=== PATIENT | female | born 1945 | race Caucasian/White ===

== ENCOUNTER → 2018-05-15 16:59 | Outpatient (CLI) | payer OTHER, SELFPAY ==
--- NOTE | 2018-05-15 | DI.RAD.S_ITS ---
PROCEDURE: XR WRIST LT 2V INDICATIONS: LEFT WRIST PAIN TECHNIQUE: 2 views of the wrist were acquired. COMPARISON: [facility], CR, XR HAND LT 2V, 05/15/2018, 17:09. FINDINGS: Bones: No definite, acute fractures are seen. There is a smooth, remote appearing bone cleft involving the radial styloid. Degenerative changes are seen, which are most prominent involving the radial aspect of the carpus. Hooked osteophytes are seen involving the 3rd and 4th metacarpal heads. Soft tissues: No suspicious soft tissue calcifications. IMPRESSION: Apparent remote fracture involving the radial styloid. If there is point tenderness (or other clinical suspicion for a fracture not seen on these images) then a dedicated CT could be considered for further evaluation, as clinically appropriate. Degenerative changes are seen, which are most prominent involving the medial aspect of the carpus. Hooked osteophytes are seen, which can be observed in patients with CPPD deposition disease and hemachromatosis. Dictated by: Eleno Keenan M.D. on 05/15/2018 at 17:00 Approved by: Eleno Keenan M.D. on 05/15/2018 at 17:02
--- NOTE | 2018-05-15 | DI.RAD.S_ITS ---
PROCEDURE: XR HAND LT 2V INDICATIONS: LEFT HAND PAIN TECHNIQUE: 2 views of the hand(s) acquired. COMPARISON: [facility], CR, XR WRIST LT 2V, 05/15/2018, 17:11. FINDINGS: Bones: No fractures or dislocations. Carpal bones are normally aligned. No suspicious bony lesions. Degenerative changes are seen, with which are most prominent involving the radial aspect of the carpus. Joint space narrowing can be seen involving the distal interphalangeal joints and the proximal interphalangeal joints. A mild gullwing deformity can be seen involving several interphalangeal joints. Hooked osteophytes involving the 3rd and 4th metacarpal heads. Bandaging material is seen, which somewhat limits evaluation. Soft tissues: No suspicious soft tissue calcifications. 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 Hooked osteophytes can be seen, which is is observed in patients with hemachromatosis and CPPD deposition disease. Dictated by: Eleno Keenan M.D. on 05/15/2018 at 16:58 Approved by: Eleno Keenan M.D. on 05/15/2018 at 17:00
== END ==
PROVIDERS: PCP Internal Medicine; Visit Provider Internal Medicine
DX: M79.642 Pain in left hand (principal); M19.042 Primary osteoarthritis, left hand; M25.532 Pain in left wrist; M19.032 Primary osteoarthritis, left wrist
CPT/HCPCS: 73100; 73120

== ENCOUNTER 2023-02-19 08:08 | Emergency (ER) | payer OTHER, SELFPAY ==
[2023-02-19] VITALS (9 sets, daily range): BP systolic 138–199; BP diastolic 63–86; PULSE 60–67; RESP 16–22; TEMP 36.3; O2SAT 99–100; BMI 23.0
--- NOTE | 2023-02-19 08:28 | ED_ITS ---
HPI - Abdominal Pain General Chief Complaint: Abdominal Pain Stated Complaint: Lower abd pain Time Seen by Provider: 02/19/23 08:14 Source: patient and EMS Mode of arrival: EMS History of Present Illness HPI narrative: Patient is a 77-year-old who denies any medical problems and does not take any medication presents today with lower abdominal pain diarrhea ongoing since November. She reports that it all started when she ate shrimp in obvious. She says since then she is had lower abdominal pain and diarrhea multiple times. She reports seeing transparent long stringy things in the toilet when she poops. She is been tested for parasites couple of times all have been negative but she is quite worried that she is a parasite. She is been taking [id number] natural parasite drops. She is here because she can not take it anymore she is quite anxious and worried she is lower abdominal pain. No nausea or vomiting no chest pain or shortness of breath. She does not want anything for pain. She does have a history of anaphylaxis to lisinopril aspirin Benadryl NSAIDs. Related Data Previous Rx's Medication Instructions Recorded ciprofloxacin HCl 500 mg tablet 500 mg PO BID #14 tabs 02/19/23 (Cipro) metronidazole 500 mg tablet 500 mg PO Q8H 7 days #21 tabs 02/19/23 Allergies Allergy/AdvReac Type Severity Reaction Status Date / Time aspirin Allergy Verified 02/19/23 08:17 diphenhydramine Allergy Verified 02/19/23 08:17 [From Benadryl] NSAIDS (Non-Steroidal Allergy Verified 02/19/23 08:17 Anti-Inflamma Penicillins Allergy Verified 02/19/23 08:17 prednisone Allergy Verified 02/19/23 08:17 Naimioi-UKO-OcF Reductase Allergy Verified 02/19/23 08:17 Inhibitor From PROZAC Allergy Severe ANAPHYLACTIC Uncoded 07/18/17 11:47 - W/ 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 LISINOPRIL Allergy Intermediate SWELLING Uncoded 07/18/17 11:47 AND HIVES NOVOCAIN Allergy Intermediate SEVERE Uncoded 07/18/17 11:47 H/A, VOMITING DARVON Allergy Unknown NAUSEA Uncoded 07/18/17 11:47 Patient History Social History Smoking Status: Never smoker Smoking Status: Never smoker alcohol intake frequency: other Substance Use Type: does not use Exam Initial Vital Signs Initial Vital Signs: Vital Signs Blood Pressure 199/86 H 02/19/23 08:12 GENERAL: Alert alert 77-year-old worried female HEENT: Head atraumatic,EOMI, pupils reactive, face symmetric, moist mucous membranes CARDIOVASCULAR: Regular rate and rhythm without murmurs, rubs or gallops. RESPIRATORY: Breath sounds equal bilaterally, no wheezes rales or rhonchi. ABDOMEN: Soft, mild lower abdominal tenderness EXTREMITIES: Normal range of motion, no clubbing or edema. Neurovascularly intact NEUROLOGICAL: Alert and oriented x4.Normal gait and speech. SKIN: Warm, dry, no laceration, no petechiae, no rashes or lesions. Course Orders Ordered: ED Orders 02/19/23 08:11 Complete Blood Count AUTO DIFF Stat Comprehensive Metabolic Panel Stat Lipase Stat 02/19/23 08:28 CT abdomen pelvis w con Stat Discontinued Medications Sodium Chloride (Normal Saline 0.9%) 1,000 mls @ 1,000 mls/hr IV BOLUS ONE Stop: 02/19/23 09:27 Last Infusion: 02/19/23 09:46 Dose: Infused Documented By: Admin: 02/19/23 08:49 Dose: 1,000 mls/hr Documented By: SIA Vital Signs Vital signs: Vital Signs - 8 hr 02/19/23 08:12 02/19/23 08:13 02/19/23 08:18 Temperature 97.4 F L Pulse Rate 67 60 Respiratory Rate 18 Blood Pressure 199/86 H 199/86 H Pulse Oximetry 100 100 Oxygen Delivery Method Room Air 02/19/23 08:30 02/19/23 08:31 02/19/23 08:31 Temperature Pulse Rate 63 63 Respiratory Rate Blood Pressure 164/67 H Pulse Oximetry 99 100 Oxygen Delivery Method 02/19/23 08:57 02/19/23 08:57 02/19/23 09:00 Temperature Pulse Rate 66 Respiratory Rate 16 Blood Pressure 149/63 H 138/63 Pulse Oximetry 100 Oxygen Delivery Method 02/19/23 09:00 02/19/23 09:30 02/19/23 09:31 Temperature Pulse Rate 64 63 64 Respiratory Rate 17 22 Blood Pressure Pulse Oximetry 100 100 100 Oxygen Delivery Method Room Air Room Air 02/19/23 09:31 Temperature Pulse Rate Respiratory Rate Blood Pressure 183/74 H Pulse Oximetry Oxygen Delivery Method MDM - Abdominal Pain Lab Data 02/19/23 08:11 02/19/23 08:11 Labs: Lab Results 02/19/23 Range/Units 08:11 WBC 4.2 L (4.5-11.0) X10^3/uL RBC 4.20 (4.0-5.2) X10^6/uL Hgb 13.5 (12.0-16.0) g/dL Hct 39.3 (36-46) % MCV 93.7 (80-100) fL MCH 32.3 (26-34) PG MCHC 34.4 (30-36) % RDW 13.5 (11.6-14.8) % Plt Count 282 (150-400) X10^3/uL Neut % (Auto) 58.0 (50-75) % Lymph % (Auto) 27.1 (25-40) % Bradley % (Auto) 10.4 (3-14) % Eos % (Auto) 3.3 (2-4) % Baso % (Auto) 1.2 (0-2) % Neut # (Auto) 2400 (0256-5247) /uL Lymph # (Auto) 1100 (7201-3881) /uL Bradley # (Auto) 400 (0-900) /uL Eos # (Auto) 100 (0-450) /uL Baso # (Auto) 0 (0-100) /uL Sodium 136 L (137-145) mmol/L Potassium 4.1 (3.4-5.1) mmol/L Chloride 104 (98-107) mmol/L Carbon Dioxide 24 (22-32) mmol/L BUN 14 (7-17) mg/dL Creatinine 0.74 (0.52-1.04) mg/dL Estimated GFR > 60 (>60) mL/min BUN/Creatinine Ratio 18.9 (6-22) Glucose 95 (80-110) mg/dL Calcium 9.7 (8.4-10.2) mg/dL Total Bilirubin 1.2 (0.2-1.3) mg/dL AST 27 (14-36) IU/L ALT 15 (<35) IU/L Alkaline Phosphatase 75 (38-126) U/L Total Protein 8.0 (6.3-8.2) g/dL Albumin 4.2 (3.5-5.0) g/dL Globulin 3.8 (1.7-4.1) g/dL Albumin/Globulin Ratio 1.1 (1.0-2.8) Lipase 69 (23-300) U/L Point of care testing: Urine Dip Bedside Urine Glucose Negative Bedside Urine Bilirubin - Negative Bedside Urine Ketone +/- 5 Urine Specific [place] 1.000 Bedside Urine Occult Blood - Negative Bedside Urine pH 6.0 Bedside Urine Protein - Negative Bedside Urine Urobilinogen - Negative Bedside Urine Nitrite - Negative Bedside Urine Leukocytes - Negative Esterase Imaging Data CT scan - abdomen/pelvis: Radiologist's Impression: PROCEDURE: CT ABDOMEN PELVIS W CON INDICATIONS: lower ab pain TECHNIQUE: After the administration of IV contrast, axial sections were acquired from the lung bases to the pubic symphysis. Coronal and sagittal reformats were performed. For radiation dose reduction, the following was used: automated exposure control, adjustment of mA and/or kV according to patient size. COMPARISON: None. FINDINGS: Image quality: Excellent. Lung bases: Reticular thickening which could be due to interstitial lung disease. No pleural effusion. Heart: Coronary artery calcifications. Small hiatal hernia. ABDOMEN: Liver: Several small hepatic cysts. Gallbladder: Within normal limits. Biliary ducts: Not distended. Pancreas: No peripancreatic fluid collection. Spleen: No splenomegaly. Adrenal Glands: No nodule. Kidneys and Ureters: No hydronephrosis. No solid renal mass. Stomach and Bowel: Stomach is within normal limits. No small bowel obstruction. Diverticulosis. No diverticulitis identified. Trace free fluid or edema in the left pericolic gutter, (2/32). Normal appendix. Peritoneum: No ascites. No pneumoperitoneum. Ventral Wall: No hernia. Abdominal Nodes: No retroperitoneal or mesenteric adenopathy by size criteria. Vessels: Aorta and inferior vena cava are normal in size. Circumferential calcified atherosclerotic plaque. PELVIS: Pelvic Organs: Uterus is absent. Trace presacral edema. Bladder: No stone. Pelvic Nodes: No enlarged lymph nodes. Miscellaneous: No inguinal hernias are seen. Bones: No focal lesion. No compression fracture. Multilevel DDD. IMPRESSION: Trace fluid or edema in the left pericolic gutter. This could be seen in the setting of colitis. No diverticulitis is appreciated. Trace presacral edema. No mass or adenopathy. Dictated by: Eric Stapleton M.D. on 02/19/2023 at 9:04 MDM Narrative Medical decision making narrative: Patient 77-year-old female who presents today with ongoing abdominal pain and diarrhea for months. She is quite concerned that she has parasites despite multiple outpatient negative parasite blood work today has been reviewed. WBC 4.2 no anemia no significant electrolyte abnormality or ARIADNE. CT shows trace fluid in the left pericolic gutter suggesting colitis but no diverticulitis. At this time patient has had ongoing symptoms for a number of months there is no perforation abscess or significant complication. I think reasonable to start her on Cipro and Flagyl to see if her symptoms improve. Discharge Plan Departure Patient Disposition: Home Clinical Impression: Colitis Instructions: DI for Colitis Activity Restrictions/Additional Instructions: *You have been diagnosed with colitis *What to do: At this time increase diet as tolerated *Continue to take medications as directed--> [facility] Cipro 500 mg twice a day for 7 days Flagyl 500 mg 3 times a day for 7 days *Follow up with your primary care provider in 2-3 days or call [phone] *Return to ER if you should have increasing pain rash difficulty breathing or any new, worsening or concerning symptoms Prescriptions: New metronidazole 500 mg tablet 500 mg PO Q8H 7 Days Qty: 21 0RF ciprofloxacin HCl [Cipro] 500 mg tablet 500 mg PO BID Qty: 14 0RF Referrals: Lea Fierro PA-C [Physician] - Stand Alone Forms: Patient Portal/API
[2023-02-19 08:44] LABS: Add Manual Diff / Slide Review NO; Basophils Absolute Auto 0 /uL (0-100); Basophils Percent Auto 1.2 % (0-2); Eosinophils Absolute Auto 100 /uL (0-450); Eosinophils Percent Auto 3.3 % (2-4); Hematocrit 39.3 % (36-46); Hemoglobin 13.5 g/dL (12.0-16.0); Lymphocytes Absolute Auto 1100 /uL (1100-4500); Lymphocytes Percent Auto 27.1 % (25-40); Mean Corpuscular HGB Conc 34.4 % (30-36); Mean Corpuscular Hemoglobin 32.3 PG (26-34); Mean Corpuscular Volume 93.7 fL (80-100); Monocytes Absolute Auto 400 /uL (0-900); Monocytes Percent Auto 10.4 % (3-14); Neutrophils Absolute Auto 2400 /uL (1500-7000); Platelet Count 282 X10^3/uL (150-400); Red Cell Distribution Width 13.5 % (11.6-14.8); White Blood Cell Count 4.2 X10^3/uL (4.5-11.0)
[2023-02-19 08:49] LABS: Alanine Aminotransferase 15 IU/L (<35); Albumin 4.2 g/dL (3.5-5.0); Albumin Globulin Ratio 1.1 (1.0-2.8); Alkaline Phosphatase 75 U/L (38-126); Aspartate Aminotransferase 27 IU/L (14-36); BUN Creatinine Ratio 18.9 (6-22); Bilirubin Total 1.2 mg/dL (0.2-1.3); Blood Urea Nitrogen 14 mg/dL (7-17); Calcium 9.7 mg/dL (8.4-10.2); Carbon Dioxide 24 mmol/L (22-32); Chloride 104 mmol/L (98-107); Estimated Glomerular Filt Rate > 60 mL/min (>60); Globulin 3.8 g/dL (1.7-4.1); Glucose 95 mg/dL (80-110); HEMOLYSIS 23 (0-50); Lipase 69 U/L (23-300); Potassium 4.1 mmol/L (3.4-5.1); Sodium 136 mmol/L (137-145)
[2023-02-19] MEDS: SODIUM CHLORIDE 0.9% 1,000 ML 1000 ML IV (08:49)
== END 2023-02-19 10:00 | disposition home or self-care (01) ==
PROVIDERS: Emergency Provider Emergency Medicine; PCP Student in an Organized Health Care Education/Training Program
DX: K52.9 Noninfective gastroenteritis and colitis, unspecified (principal)
CPT/HCPCS: 36415; 74177; 80053; 81003; 83690; 85025; 96360; 99284